=== PATIENT | male | born 1955 | race Caucasian/White ===

== ENCOUNTER 2023-06-05 06:47 | Emergency (ER) | payer OTHER, MEDICARE ==
[2023-06-05] MEDS: LORazepam 2 MG/ML SDV IVPUSH ONE (06:59)
[2023-06-05] MEDS ORDERED: Pantoprazole 40 MG Delayed-Release Granules 1 Packet PO ONE (07:33)
[2023-06-05] MEDS: Carvedilol 3.125 MG Tab PO ONE (07:47)
[2023-06-05] MEDS: LORazepam 0.5 MG Tab PO ONE (07:47)
[2023-06-05] MEDS: Gabapentin 300 MG Cap PO ONE (07:47)
[2023-06-05] MEDS: buPROPion 150 MG Tab.ER PO ONE (07:48)
[2023-06-05] MEDS: Clopidogrel 75 MG Tab PO ONE (07:49)
[2023-06-05] MEDS: Diltiazem 180 MG Cap.CD PO ONE (07:49)
[2023-06-05] MEDS: Pantoprazole 40 MG Tab.CR PO ONE (07:50)
[2023-06-05] MEDS: Apixaban 5 MG Tab PO ONE (07:50)
[2023-06-05] MEDS ORDERED: LORazepam 0.5 MG Tab PO SCH (12:00)
== END 2023-06-05 09:10 | disposition home or self-care (01) ==
LOC: JP.ED 06:47
DX: F41.9 Anxiety disorder, unspecified (principal); F20.9 Schizophrenia, unspecified; F13.230 Sedative, hypnotic or anxiolytic dependence with withdrawal, uncomplicated; B18.2 Chronic viral hepatitis C; I25.10 Atherosclerotic heart disease of native coronary artery without angina pectoris; I48.0 Paroxysmal atrial fibrillation; F31.81 Bipolar II disorder; I10 Essential (primary) hypertension; Z87.820 Personal history of traumatic brain injury; Z88.0 Allergy status to penicillin; Z88.8 Allergy status to other drugs, medicaments and biological substances; Z79.01 Long term (current) use of anticoagulants; Z79.899 Other long term (current) drug therapy; Z79.02 Long term (current) use of antithrombotics/antiplatelets
CPT/HCPCS: 96374; 99284; A9270; J2060